=== PATIENT | male | born 1950 | race Caucasian/White ===

== ENCOUNTER 2017-03-24 09:53 | Day surgery (SDC) | payer BC, MEDICARE ==
[2016-03-10 01:43] VITALS: BP 136/78
[~2017-03-24 09:53] MED LIST: LACTATED RINGERS 1,000 ML IV.SOLN IV ONE; PROPOFOL 500 MG/50 ML VIAL IV ONE; SALINE FLUSH 10 ML DISP.SYRIN IVF ONE
--- NOTE | 2017-03-25 11:09 | GI Report ---
REFERRING PHYSICIAN: ALENA Hutchinson LABEL PASTER: Mick Roberto MD PROCEDURE MEDICATION: Propofol as per anesthesia. HISTORY: Patient is a 66-year-old man whose last colonoscopy was over 10 years ago. He has had recent shingles on his left thorax. He denies change in stool. Family history is strong for cancers, father with lung cancer to the brain and sister with breast cancer metastatic to the brain. He is referred for the indications and screening. PROCEDURE PERFORMED: Colonoscopy with polypectomy. PROCEDURE: An Olympus video colonoscope was advanced to the rectum. A slightly atonic redundant colon. It took some maneuvering and nurse compression to finally reach the base of the cecum. In the cecum, patient has a 2 mm flat polyp that was cold biopsy removed. On slow withdrawal, the cecum, ascending colon, and transverse colon with no obvious intraluminal lesions noted. The descending colon and sigmoid colon with a lot of redundancy. No obvious intraluminal lesions were noted. Retroflexion of the rectum showed hemorrhoids. Patient tolerated the procedure well. FINDINGS: 1. A very atonic redundant colon to the cecum. 2. A small polyp at the base of the cecum that was cold biopsy removed. RECOMMENDATIONS: 1. A high fiber diet. 2. Consider re-looking at his colon in 5 years pending the pathology of the polyp. 3. Follow up with Juni Constantino. cc: ALENA Hutchinson [facility]
== END 2017-03-24 09:54 ==
LOC: OPSURG 09:53
PROVIDERS: ATTEND Internal Medicine Gastroenterology
DX: Z12.11 Encounter for screening for malignant neoplasm of colon (principal); D12.0 Benign neoplasm of cecum; Z80.8 Family history of malignant neoplasm of other organs or systems
CPT/HCPCS: 88305; J2704; J7120; 45385; S1016

== ENCOUNTER 2017-04-23 10:18 | Outpatient (CLI) | payer BC, MEDICARE ==
[2016-03-10 01:43] VITALS: BP 136/78
[2017-04-23 10:56] LABS: eGFR (African) > 60; eGFR (Non-African) > 60
== END 2017-04-23 10:20 ==
LOC: LAB 10:18
PROVIDERS: ATTEND Family Medicine
DX: E78.00 Pure hypercholesterolemia, unspecified (principal)
CPT/HCPCS: 36415; 80053; 80061

== ENCOUNTER 2018-09-03 10:51 | Outpatient (CLI) | payer MEDICARE, OTHER ==
[2016-03-10 01:43] VITALS: BP 136/78
--- NOTE | 2018-09-03 12:40 | Diagnostic Imaging Report ---
<p>Your browser does not support iframes.</p> BARTOLO BROOKS [facility] [address] [facility]. [address] [place] [address]. [id number] Report Submission Date: Sep 03, 2018 12:00:23 PM CDT Patient Study Name: STEVE JACKSON Date: Sep 03, 2018 10:58:49 AM CDT Modality Type: US Gender: M Description: US SCROTUM CONTENTS : 48 Institution: [facility] Physician: BARTOLO BROOKS Exam: Testicular ultrasound. History: Left-sided swelling. Real-time grayscale and color Doppler imaging of the contents of the scrotum is performed. The right testicle measures 4.3 x 2.5 x 3.1 cm. The left testicle measures 4.7 x 2.9 x 5.6 centimeters. A small cysts in the periphery of the left testicle measures 4 mm in greatest diameter. An irregular epididymal cyst on the right side is identified measuring 1.3 cm in greatest diameter. Bilateral hydroceles are identified greater on the left than on the right. Impression: Small cyst associated with the left testicle. Bilateral hydroceles greater on the left than on the right. Electronically signed on Sep 03, 2018 12:00:23 PM CDT by: Reji GALLEGOS
== END 2018-09-03 10:53 ==
LOC: RAD 10:51
PROVIDERS: ATTEND Family Medicine
DX: N43.3 Hydrocele, unspecified (principal); N44.2 Benign cyst of testis
CPT/HCPCS: 76870

== ENCOUNTER 2018-12-27 17:10 | Emergency (ER) | payer MEDICARE, OTHER ==
[2018-12-27] MEDS ORDERED: diphenhydrAMINE HCL 50 MG/ML VIAL IVP ONE (17:14)
[2018-12-27] MEDS ORDERED: FAMOTIDINE 20 MG/2 ML VIAL IV ONE (17:14)
[2018-12-27] MEDS ORDERED: methylPREDNISolone SOD SUCC 125 MG/2 ML VIAL IVP ONE (17:14)
--- NOTE | 2018-12-27 17:15 | ED Physician Documentation ---
Allergy Symptoms - HISTORIAN Historian: patient, spouse - [facility] Chief Complaint: Allergic Reaction Additional Information: Patient is a 68-year-old male who presents to the ER with symptoms of allergic reaction. He states that he ate some peaches and started to break out in rash- he used his epi pen and took benadryl- symptoms persisted so he came to the ER- denies any shortness of breath- no difficulty swallowing. Rash to face, neck, trunk, abdomen and arms. Onset: minutes Duration: continues in ED Associated Symptoms: skin rash, facial, trunk, extremities, diffuse redness, diffuse hives Swelling: face Shortness of Breath: none Trouble Swallowing/ Speaking: none Identified Cause: possibly When Did Symptoms Start: 12/27/18 Context: Food Exposure: other (possibly peaches) Where: home Context: Medication Exposure: none - ROS EYES/ENT: eye redness CVS/RESP: none GI/: none CONST: none MS/SKIN/LYMPH: none NEURO/PSYCH: none - PAST HX Prior Allergic Reaction: anaphylaxis, hives, rash Medical History: other (tremors, GERD) Immunizations: UTD Allergies/Adverse Reactions: Allergies Allergy/AdvReac Type Severity Reaction Status Date / Time Penicillins Allergy Verified 12/27/18 17:38 Sulfa (Sulfonamide Allergy Verified 12/27/18 17:38 Antibiotics) tree nut Allergy Verified 12/27/18 17:38 Home Medications: Ambulatory Orders Medication Instructions Recorded Gabapentin 100 mg PO TID av 04/23/17 Clonazepam 0.25 mg PO BID u2 06/25/17 Primidone 50 mg PO q PM u2 06/25/17 Epinephrine [Epipen Jr] 0.15 mg IM PRN PRN #1 ml 12/27/18 - SOCIAL HX Smoking History: less than 1 pack/day Alcohol Use: none Drug Use: none - FAMILY HX Family History: No - VITAL SIGNS Vital Signs: Vital Signs Temp Pulse Resp BP Pulse Ox 136/78 03/10/16 01:39 - REVIEWED ASSESSMENTS Nursing Assessment Reviewed: Yes Vitals Reviewed: Yes Progress - Progress Progress: 18:00 Rash has greatly improved. No SOA ED Results Lab/Radiology - Orders Orders: ED Orders Category Date Time Status Place IV Lock 1T Care 12/27/18 17:14 Ordered Famotidine/Pf [Pepcid] Med 12/27/18 17:14 Once 20 mg IV NOW ONE diphenhydrAMINE HCL [Benadryl] Med 12/27/18 17:14 Once 25 mg IVP NOW ONE methylPREDNISolone SOD SUCC [SOLU-Medrol] Med 12/27/18 17:14 Once 125 mg IVP NOW ONE Allergy Symptons Exam - EXAM General Appearance: alert, mild distress HEENT: ENT nml inspection, pharynx nml, voice nml Skin: skin rash, urticaria, fine, facial, neck, trunk, arms Extremities: non-tender, nml ROM, no edema Neck: nml inspection Respiratory: no resp. distress, breath sounds nml CVS: heart sounds normal, equal pulses Abdomen: non-tender, nml bowel sounds Neuro: oriented X3, CN's nml as tested, motor nml, sensation nml, mood/affect nml, cognition normal Discharge Clincal Impression: Allergic reaction Prescriptions: Epinephrine [Epipen Jr] 0.15 mg IM PRN PRN #1 ml PRN Reason: Allergic Reaction Referrals: Oscar Gamble MD [Primary Care Provider] - 2 Days Additional Instructions: Take Benadryl 50mg by mouth every 6 hours as needed for itching Ranitidine 150mg by mouth twice a day If rash reappears or develop shortness of breath return to ER immediately Follow up with PCP next week for re-evaluation Condition: Good Disposition: 01 HOME, SELF-CARE Decision to Admit: NO Decision Time: 18:50
[2018-12-27 17:35] LABS: BASOPHILS % 0.6 % (0.0-1.5); NEUTROPHILS # 4.1 # k/uL (1.4-7.7)
[2018-12-27 17:50] LABS: eGFR (Non-African) > 60
[2018-12-27 18:38] VITALS: BP 115/69
== END 2018-12-27 18:38 | disposition home or self-care (01) ==
LOC: ED 17:10
DX: R21 Rash and other nonspecific skin eruption (principal); T78.1XXA Other adverse food reactions, not elsewhere classified, initial encounter
CPT/HCPCS: 80053; 85025; 96374; 96375; 99284; J1200; J2930; S1016